=== PATIENT | male | born 1995 | race Caucasian/White ===

== ENCOUNTER 2016-09-23 16:23 | Emergency (ER) | payer SELFPAY ==
[2016-09-23] MEDS: Sodium Chloride 0.9% 1,000 ML IV SCH (17:06)
[2016-09-23] MEDS: Ondansetron 4 MG/2 ML SDV IVPUSH ONE ×2 (17:07→18:57)
[2016-09-23] MEDS: Sodium Chloride 0.9% 10 ML Syringe FLUSH PRN (17:08)
[2016-09-23] MEDS: Famotidine 20 MG/2 ML SDV IVPUSH ONE (17:10)
[2016-09-23] MEDS: HYDROmorphone 0.5 MG/0.5 ML Syringe IVPUSH ONE ×2 (17:13→18:58)
--- NOTE | 2016-09-23 18:54 | EDM.PDOC ---
ED HPI GI/ABDOMINAL - General Chief Complaint: Abdominal Pain Stated Complaint: ABDOMINAL PAIN Time Seen by Provider: 09/23/16 16:35 Source of Information: Reports: Patient, RN notes reviewed - History of Present Illness INITIAL COMMENTS - FREE TEXT/NARRATIVE: 20-year-old male comes in with abdominal pain nausea vomiting and diarrhea. This started yesterday afternoon about 28 hours ago. This started with the nausea vomiting and then progressed to frequent watery diarrhea along with frequent abdominal cramps more upper abdominal and lower abdominal. Of note looking at past medical records he has had frequent visits with similar symptomatology over the past 3-4 years. He has had some chills but no obvious fever. No prior abdominal surgeries. - Related Data Allergies/ADRs: Allergies Allergy/AdvReac Type Severity Reaction Status Date / Time lactose Allergy Abdominal Verified 09/23/16 16:29 Pain Home Meds: Home Meds Ondansetron [Zofran ODT] 4 mg PO Q6H PRN #7 tab.dis 09/23/16 [Rx] Past Medical History - Past Health History Medical/Surgical History: Denies Medical/Surgical History Other Respiratory History: Hx--states was Dx'd with cannibinoid hyperemesis syndrome in past. Other Gastrointestinal History: recurretn abdominal pain Social & Family History - Tobacco Use Smoking Status *Q: Current Every Day Smoker Years of Tobacco use: 2 Packs/Tins Daily: 0.5 Second Hand Smoke Exposure: No - Alcohol Use Days Per Week of Alcohol Use: 0 - Recreational Drug Use Recreational Drug Use: Yes Drug Use in Last 12 Months: Yes Recreational Drug Type: Reports: Marijuana/Hashish ED ROS GENERAL - Review of Systems Review Of Systems: See Below Constitutional: Reports: chills. Denies: fever HEENT: Reports: No symptoms Respiratory: Denies: shortness of breath, pleuritic chest pain Cardiovascular: Denies: Chest pain GI/Abdominal: Reports: Abdominal pain (upper abdominal pain and cramping), Diarrhea (frequent watery), Decreased appetite, Nausea, Vomiting (frequent repetitive since yesterday afternoon) Musculoskeletal: Reports: no symptoms Skin: Reports: no symptoms Neurological: Reports: dizziness (mild) ED EXAM, GI/ABD - Physical Exam Exam: See Below General Appearance: alert, moderate distress Throat/Mouth: Normal inspection, Normal oropharynx Head: atraumatic. No: facial swelling Neck: supple, full range of motion Respiratory/Chest: no respiratory distress, lungs clear, normal breath sounds Cardiovascular: regular rate, rhythm GI/Abdominal: tenderness (moderate tenderness upper midabdomen mild periumbilical tenderness mild diffuse lower abdominal tenderness). No: guarding , rebound Back Exam: No: CVA tenderness (L), CVA tenderness (R) Extremities: normal inspection, normal range of motion Skin Exam: Warm, Dry, Normal color Course - Vital Signs Last Recorded V/S: Last Vital Signs Temp 96.2 F 09/23/16 16:27 Pulse 48 L 09/23/16 18:59 Resp 16 09/23/16 18:59 BP 130/84 09/23/16 18:59 Pulse Ox 100 09/23/16 18:59 - Orders/Labs/Meds Orders: Active Orders 24 hr Category Date Time Status Peripheral IV Care [RC] . DIRECTED Care 09/23/16 16:58 Active Sodium Chloride 0.9% [Normal Saline] 1,000 ml Med 09/23/16 17:00 Active IV ONETIME Sodium Chloride 0.9% [Saline Flush] Med 09/23/16 16:54 Active 10 ml FLUSH ASDIRECTED PRN Peripheral IV Insertion Adult [OM.PC] Stat Oth 09/23/16 16:49 Ordered Medication Orders Sodium Chloride (Normal Saline) 1,000 mls @ 999 mls/hr IV ONETIME [facility] Last Admin: 09/23/16 17:06 Dose: 999 mls/hr Sodium Chloride (Saline Flush) 10 ml FLUSH ASDIRECTED PRN PRN Reason: Keep Vein Open Last Admin: 09/23/16 17:08 Dose: 10 ml Labs: Laboratory Tests 09/23/16 09/23/16 Range/Units 16:35 16:35 WBC 17.29 H (4.23-9.07) K/mm3 RBC 5.30 (4.63-6.08) M/mm3 Hgb 15.9 (13.7-17.5) gm/L Hct 46.4 (40.1-51.0) % MCV 87.5 (79.0-92.2) fl MCH 30.0 (25.7-32.2) pg MCHC 34.3 (32.2-35.5) g/dl RDW Std Deviation 40.6 (35.1-43.9) fL Plt Count 441 H (163-337) K/mm3 MPV 9.0 L (9.4-12.3) fl Neut % (Auto) 91.3 H (34.0-67.9) % Lymph % (Auto) 5.7 L (21.8-53.1) % [place] % (Auto) 2.7 L (5.3-12.2) % Eos % (Auto) 0 L (0.8-7.0) Baso % (Auto) 0.1 (0.1-1.2) % Neut # 15.77 H (1.78-5.38) K/mm3 Lymph # 0.99 L (1.32-3.57) K/mm3 [place] # 0.47 (0.30-0.82) K/mm3 Eos # 0.00 L (0.04-0.54) K/mm3 Baso # 0.02 (0.01-0.08) K/mm3 Manual Slide Review Abnormal smear Sodium 139 (136-145) mEq/L Potassium 3.9 (3.5-5.1) mEq/L Chloride 98 (98-107) mEq/L Carbon Dioxide 27 (21-32) mEq/L Anion Gap 17.9 H (5-15) BUN 15 (7-18) mg/dL Creatinine 1.0 (0.7-1.3) mg/dL Est Cr Clr Drug Dosing 102.91 mL/min Estimated GFR (MDRD) > 60 (>60) mL/min BUN/Creatinine Ratio 15.0 (14-18) Glucose 139 H (74-106) mg/dL Calcium 9.8 (8.5-10.1) mg/dL Total Bilirubin 0.3 (0.2-1.0) mg/dL AST 22 (15-37) U/L ALT 25 (16-63) U/L Alkaline Phosphatase 107 (46-116) U/L Total Protein 8.2 (6.4-8.2) g/dl Albumin 4.8 (3.4-5.0) g/dl Globulin 3.4 gm/dL Albumin/Globulin Ratio 1.4 (1-2) Meds: Medications Generic Name Dose Route Start Last Admin Trade Name Freq PRN Reason Stop Dose Admin Sodium Chloride 1,000 mls @ 999 mls/hr 09/23/16 17:00 09/23/16 17:06 Normal Saline IV 999 mls/hr ONETIME NEL Administration Sodium Chloride 10 ml 09/23/16 16:54 09/23/16 17:08 Saline Flush FLUSH 10 ml ASDIRECTED PRN Administration Keep Vein Open Discontinued Medications Generic Name Dose Route Start Last Admin Trade Name Maria Fernanda PRN Reason Stop Dose Admin Famotidine 20 mg 09/23/16 16:54 09/23/16 17:10 Pepcid IVPUSH 09/23/16 16:55 20 mg ONETIME ONE Administration Hydromorphone HCl 0.5 mg 09/23/16 16:58 09/23/16 17:13 Dilaudid IVPUSH 09/23/16 16:59 0.5 mg ONETIME ONE Administration Hydromorphone HCl 0.5 mg 09/23/16 18:48 09/23/16 18:58 Dilaudid IVPUSH 09/23/16 18:49 0.5 mg ONETIME ONE Administration Ondansetron HCl 4 mg 09/23/16 16:54 09/23/16 17:07 Zofran IVPUSH 09/23/16 16:55 4 mg ONETIME ONE Administration Ondansetron HCl 4 mg 09/23/16 18:48 09/23/16 18:57 Zofran IVPUSH 09/23/16 18:49 4 mg ONETIME ONE Administration - Re-Assessments/Exams Free Text/Narrative Re-Assessment/Exam: 09/23/16 19:05. feeling better after 1 L of IV normal saline, IV Zofran and 1 mg Dilaudid. He is no longer vomiting. He is asking if he can drink fluids. We will let him slowly start on some ice chips. Further medicates with another 4 mg ZofranIV prior to discharge and also 0.5 mg of water. On recheck he continues to be more tender upper mid abdomen than lower abdomen has very minimal tenderness at this time right lower corner. His white blood count is elevated with the sudden onset of nausea vomiting watery diarrhea onset and progression of symptoms much more suggestive for a viral gastroenteritis type that infection versus appendicitis. He shouldn't has been cautioned to return to ED if at any time the pain does start localizing more to the right lower abdomen or if symptoms not getting better over the next 12-24 hours as expected. Discharge instructions as documented. Departure - Departure Time of Disposition: 18:47 Disposition: Home, Self-Care 01 Condition: fair Clinical Impression: Abdominal pain Qualifiers: Abdominal location: upper abdomen, unspecified Qualified Code(s): R10.10 - Upper abdominal pain, unspecified Vomiting Qualifiers: Vomiting type: unspecified Vomiting Intractability: non-intractable Diarrhea Qualifiers: Diarrhea type: unspecified type Qualified Code(s): R19.7 - Diarrhea, unspecified Prescriptions: Ondansetron [Zofran ODT] 4 mg PO Q6H PRN #7 tab.dis PRN Reason: Nausea/Vomiting Instructions: Diarrhea, Adult, Abdominal Pain, Adult, [id number], Nausea and Vomiting, Adult Referrals: PCP,None [Primary Care Provider] - Forms: ED Department Discharge Additional Instructions: clear liquids only until tomorrow afternoon, then careful bland diet as tolerated, start probiotic this evening and take twice daily for one week, Zofran if needed for further nausea or vomiting, return to ED as discussed if pain localizing to right lower abdomen, followup clinic if not back to normal by Tuesday - My Orders Last 24 Hours: My Active Orders 09/23/16 16:49 Peripheral IV Insertion Adult [OM.PC] Stat 09/23/16 16:54 Sodium Chloride 0.9% [Saline Flush] 10 ml FLUSH ASDIRECTED PRN 09/23/16 16:58 Peripheral IV Care [RC] . DIRECTED 09/23/16 17:00 Sodium Chloride 0.9% [Normal Saline] 1,000 ml IV ONETIME - Assessment/Plan Last 24 Hours: My Active Orders 09/23/16 16:49 Peripheral IV Insertion Adult [OM.PC] Stat 09/23/16 16:54 Sodium Chloride 0.9% [Saline Flush] 10 ml FLUSH ASDIRECTED PRN 09/23/16 16:58 Peripheral IV Care [RC] . DIRECTED 09/23/16 17:00 Sodium Chloride 0.9% [Normal Saline] 1,000 ml IV ONETIME
[2016-09-23 19:00] VITALS: BP 130/84
== END 2016-09-23 19:28 | disposition home or self-care (01) ==
LOC: JD.ED 16:23
DX: R10.10 Upper abdominal pain, unspecified (principal); R11.10 Vomiting, unspecified; R19.7 Diarrhea, unspecified; F17.210 Nicotine dependence, cigarettes, uncomplicated
CPT/HCPCS: 36415; 80053; 85025; 96361; 96374; 96375; 96376; 99284; J1170; J2405; J7040; J7050

== ENCOUNTER 2016-11-09 22:55 | Emergency (ER) | payer SELFPAY ==
[2016-11-09 23:04] VITALS: BP 129/68
[2016-11-09] MEDS ORDERED: Ondansetron 4 MG/2 ML SDV IVPUSH ONE (23:29)
[2016-11-09] MEDS ORDERED: Alum Hydrox/Mag Hydrox/Simeth 30 ML, Lidocaine 2% 15 ML PO STA ×2 (23:30)
[2016-11-09] MEDS ORDERED: Sodium Chloride 0.9% 1,000 ML IV SCH (23:30)
--- NOTE | 2016-11-09 23:32 | EDM.PDOC ---
ED HPI GI/ABDOMINAL - General Chief Complaint: Abdominal Pain Stated Complaint: ABDOMINAL PAIN VOMITING Time Seen by Provider: 11/09/16 23:02 Source of Information: Reports: Patient, Old records, RN notes reviewed History Limitations: Reports: No limitations - History of Present Illness INITIAL COMMENTS - FREE TEXT/NARRATIVE: The patient states that he developed epigastric pain, burning in character, along with nausea and vomiting around 18:30. The pain is not modifiable. It does not radiate. The patient states that he believes that his gallbladder has ruptured and is leaking hot fluid all over the place, and that we better figure it out. Review of the medical records indicates the patient has been to this ED many times for similar complaints, however, the patient states that this current episode is different than prior visits. On prior visits, he states, he did not have the sensation of hot liquid in his abdomen. He states that he has cannabinoid hyperemesis syndrome, and is prescribe Zofran , but has not filled the prescription, citing lack of money. Similarly, he states that his recurrent episodes of abdominal pain and emesis have not been evaluated as an outpatient. The patient does not have a PCP. - Related Data Allergies/ADRs: Allergies Allergy/AdvReac Type Severity Reaction Status Date / Time lactose Allergy Abdominal Verified 11/09/16 23:05 Pain Home Meds: Home Meds . [No Known Home Meds] 11/09/16 [History] Past Medical History Gastrointestinal History: Reports: Other (see below) (Cannabinoid hyperemesis syndrome) Social & Family History - Tobacco Use Smoking Status *Q: Current Every Day Smoker Years of Tobacco use: 1 Packs/Tins Daily: 0.5 Second Hand Smoke Exposure: No - Caffeine Use Caffeine Use: Reports: Coffee - Alcohol Use Alcohol Use History: No Days Per Week of Alcohol Use: 0 - Recreational Drug Use Recreational Drug Use: Yes Drug Use in Last 12 Months: Yes Recreational Drug Type: Reports: Marijuana/Hashish Recreational Drug Use Frequency: Socially - Living Situation & Occupation Living situation: Reports: single, other (with friends) Occupation: unemployed ED ROS GENERAL - Review of Systems Review Of Systems: See Below Constitutional: Reports: no symptoms HEENT: Reports: No symptoms Respiratory: Reports: No Symptoms Cardiovascular: Reports: No symptoms Endocrine: Reports: no symptoms GI/Abdominal: Reports: No symptoms : Reports: no symptoms Musculoskeletal: Reports: no symptoms Skin: Reports: no symptoms Neurological: Reports: No Symptoms Hematologic/Lymphatic: Reports: no symptoms Immunologic: Reports: no symptoms ED EXAM, GI/ABD - Physical Exam Exam: See Below Exam Limited By: Uncooperative General Appearance: alert, WD/WN, mild distress Eyes: bilateral: EOMI Ears: normal external exam, hearing grossly normal Nose: normal inspection, no blood Throat/Mouth: Normal inspection, Normal lips, Normal voice, No airway compromise Head: atraumatic, normocephalic Neck: normal inspection, full range of motion Respiratory/Chest: no respiratory distress, lungs clear, normal breath sounds, no accessory muscle use Cardiovascular: normal peripheral pulses, regular rate, rhythm, no edema, no gallop, no JVD, no murmur, no rub GI/Abdominal: normal bowel sounds, soft, no organomegaly, no distention, no abnormal bruit, no mass, tenderness (Primarily to the epigastric and periumbilical regions. Mild right upper quadrant tenderness. Essentially nontender elsewhere.) (Male) Exam: Deferred Rectal (Males) Exam: Deferred Back Exam: normal inspection, full range of motion, CVA tenderness (L) (slight) . No: CVA tenderness (R) Extremities: normal inspection, normal range of motion, no pedal edema, normal capillary refill Neurological: alert, oriented, no motor/sensory deficits Psychiatric: other (hostile) Skin Exam: Warm, Dry, Intact, Normal color, No rash Lymphatic: no adenopathy Course - Vital Signs Last Recorded V/S: Last Vital Signs Temp 36.6 C 11/09/16 23:02 Pulse 59 L 11/09/16 23:02 Resp 16 11/09/16 23:02 BP 129/68 11/09/16 23:02 Pulse Ox 100 11/09/16 23:02 - Orders/Labs/Meds Orders: Active Orders 24 hr Category Date Time Status Abdomen Pelvis w Cont [CT] Stat Exams 11/09/16 23:29 Ordered Labs: Laboratory Tests 11/09/16 11/09/16 Range/Units 23:39 23:39 WBC 12.03 H (4.23-9.07) K/mm3 RBC 4.62 L (4.63-6.08) M/mm3 Hgb 13.8 (13.7-17.5) gm/L Hct 40.1 (40.1-51.0) % MCV 86.8 (79.0-92.2) fl MCH 29.9 (25.7-32.2) pg MCHC 34.4 (32.2-35.5) g/dl RDW Std Deviation 38.9 (35.1-43.9) fL Plt Count 311 (163-337) K/mm3 MPV 8.5 L (9.4-12.3) fl Neutrophils % (Manual) 79 H (40-60) % Band Neutrophils % 1 (0-10) % Lymphocytes % (Manual) 19 L (20-40) % Atypical Lymphs % 0 % Monocytes % (Manual) 1 L (2-10) % Eosinophils % (Manual) 0 L (0.8-7.0) % Basophils % (Manual) 0 L (0.2-1.2) Platelet Estimate Adequate Plt Morphology Comment Normal RBC Morph Comment Normal Sodium 142 (136-145) mEq/L Potassium 4.0 (3.5-5.1) mEq/L Chloride 105 (98-107) mEq/L Carbon Dioxide 28 (21-32) mEq/L Anion Gap 13.0 (5-15) BUN 10 (7-18) mg/dL Creatinine 0.9 (0.7-1.3) mg/dL Est Cr Clr Drug Dosing 110.11 mL/min Estimated GFR (MDRD) > 60 (>60) mL/min BUN/Creatinine Ratio 11.1 L (14-18) Glucose 108 H (74-106) mg/dL Calcium 9.0 (8.5-10.1) mg/dL Total Bilirubin 0.5 (0.2-1.0) mg/dL AST 13 L (15-37) U/L ALT 19 (16-63) U/L Alkaline Phosphatase 82 (46-116) U/L Total Protein 6.9 (6.4-8.2) g/dl Albumin 4.4 (3.4-5.0) g/dl Globulin 2.5 gm/dL Albumin/Globulin Ratio 1.8 (1-2) Lipase 49 L (73-393) U/L Meds: Medications Discontinued Medications Generic Name Dose Route Start Last Admin Trade Name Freq PRN Reason Stop Dose Admin Al Hydroxide/Mg Hydroxide 30 0 ml 11/09/ 23:30 ml/ Lidocaine HCl 15 ml PO 04/18/17 23:31 ONETIME STA Sodium Chloride 1,000 mls @ 150 mls/hr 11/09/16 23:30 11/09/16 23:39 Normal Saline IV 150 mls/hr ASDIRECTED NEL Administration Ondansetron HCl 4 mg 11/09/16 23:29 11/09/16 23:39 Zofran IVPUSH 11/09/16 23:30 4 mg ONETIME ONE Administration - Re-Assessments/Exams Free Text/Narrative Re-Assessment/Exam: 11/10/16 00:12 On abdominal exam, I began to palpate the patient's right lower quadrant. He immediately said that that really hurt, and not to touch him again. I explained that without an examination, I would not be able to help determine the cause of his pain. He allowed me to reexamine him, and when I again palpated his right lower quadrant, he had no tenderness. Overall, it appears he was tender in the epigastric region, with minimal tenderness elsewhere. I ordered an abdominal workup, but I did not order any opioids, initially, preferring to try a GI cocktail to see if that would help, given the location of the patient's pain. If that did not help, my plan was to order IV Dilaudid. This plan was explained to the patient's nurse. I was then notified by the nurse that the patient is refusing both the GI cocktail and the oral contrast. Additionally, he is refusing to provide a urine sample. 11/10/16 00:20 Notified by the nurses that the patient wants to leave. I informed him that we cannot find out what the cause of his pain is if he leaves. He stated that he just wants pain medication. I suspect that the patient's symptoms are due to continued cannabinoid hyperemesis syndrome. I suspect that the reason the patient refused to provide a urine sample was because he did not want me to perform a drug screen. Obviously, the patient is drug-seeking. Departure - Departure Time of Disposition: 00:21 Disposition: Against Medical Advice 07 Condition: good Clinical Impression: Abdominal pain of unknown etiology, Nausea & vomiting, Drug-seeking behavior Referrals: PCP,None [Primary Care Provider] - Forms: ED Department Discharge Additional Instructions: You were seen in the emergency room for upper abdominal pain, nausea, and vomiting. Workup ordered in the ER included blood work, urine studies, and a CAT scan of your abdomen and pelvis. An oral medicine was ordered to help determine if your symptoms could be due to esophagitis, gastritis, or an ulcer, however, you refused to drink this. Your initial blood work appears to be unremarkable, however, because you refused to give us a urine sample and refused to drink the oral contrast for the CAT scan, we are not able to determine the cause of your symptoms. You have decided to leave AGAINST MEDICAL ADVICE. If you reconsider, and would like to have your symptoms evaluated, please do not hesitate to return to the ER. - My Orders Last 24 Hours: My Active Orders 11/09/16 23:29 Abdomen Pelvis w Cont [CT] Stat - Assessment/Plan Last 24 Hours: My Active Orders 11/09/16 23:29 Abdomen Pelvis w Cont [CT] Stat
== END 2016-11-10 00:22 | disposition left against medical advice (07) ==
LOC: JD.ED 22:55
DX: R10.13 Epigastric pain (principal); R10.33 Periumbilical pain; R11.2 Nausea with vomiting, unspecified; Z76.5 Malingerer [conscious simulation]; F17.210 Nicotine dependence, cigarettes, uncomplicated; Z91.09 Other allergy status, other than to drugs and biological substances
CPT/HCPCS: 36415; 80053; 83690; 85025; 96361; 99284; J2405; J7040

== ENCOUNTER 2016-11-10 05:17 | Emergency (ER) | payer SELFPAY ==
[2016-11-10 05:30] VITALS: BP 124/79
[2016-11-10] MEDS ORDERED: Ondansetron 4 MG/2 ML SDV IVPUSH STA (05:41)
[2016-11-10] MEDS ORDERED: Dicyclomine 20 MG/2 ML SDV IM ONE (05:44)
[2016-11-10] MEDS ORDERED: Sodium Chloride 0.9% 1,000 ML IV ONE (05:46)
--- NOTE | 2016-11-10 05:52 | EDM.PDOC ---
ED HPI GI/ABDOMINAL - General Chief Complaint: Gastrointestinal Problem Stated Complaint: abdominal pain Time Seen by Provider: 11/10/16 05:32 Source of Information: Reports: Patient, Other (Friend) History Limitations: Reports: No limitations - History of Present Illness INITIAL COMMENTS - FREE TEXT/NARRATIVE: The patient was seen in this ED by me a few hours ago, complaining of epigastric pain, burning in character, along with nausea and emesis, that began around 18:30 last night. The pain did not radiate, and patient was not able to identify any modifiers. He believed that his pain was due to a ruptured gallbladder with bile leaking within his abdomen. Review of the medical records indicated that the patient had been to this ED many times previously for similar complaints, however, the patient stated that this episode was different than the previous ones. A workup was ordered, including a blood work, a urinalysis, a urine drug screen , and a CT scan of the abdomen and pelvis. I had ordered a GI cocktail to see if that would improve his symptoms, and while I was prepared to order Dilaudid, I wanted to obtain a urine sample first. Unfortunately, the patient refused to drink the GI cocktail, refused to drink the oral contrast, and refused to provide a urine sample. He then left AMA. The patient now returns with his friend. His friend states that since a left, the patient has continued to vomit, and has taken 4 hot showers - is the only thing that gives him relief. When asked earlier tonight how long it has been since he smoked marijuana, he replied "3 weeks". When asked again now, he tells me that it has been about a week. The patient has a history of cannabinoid hyperemesis syndrome, but despite his symptoms, including his relief with hot showers, he does not believe that his current symptoms are related to his continued use of marijuana. The patient was told that in order to properly evaluate him, he will need to drink the oral contrast and provided a urine sample. He asked for pain medication. Once again, I am willing to order pain medication, but I need a urine sample from him first, because I need to see if opioid use is contributing to this problem. Could his symptoms be due to opioid withdraw? I believe this is even more important, given that he left AMA based almost entirely on whether or not he received pain medication. The patient does not have a PCP. - Related Data Allergies/ADRs: Allergies Allergy/AdvReac Type Severity Reaction Status Date / Time lactose Allergy Abdominal Verified 11/10/16 05:27 Pain Home Meds: Home Meds Ondansetron [Zofran ODT] 1 tab PO Q8H PRN #4 tab.dis 11/10/16 [Rx] Past Medical History Gastrointestinal History: Reports: Other (see below) (Cannabinoid hyperemesis syndrome) Social & Family History - Tobacco Use Smoking Status *Q: Current Every Day Smoker Years of Tobacco use: 1 Packs/Tins Daily: 0.5 - Caffeine Use Caffeine Use: Reports: Coffee - Alcohol Use Alcohol Use History: No Days Per Week of Alcohol Use: 0 - Recreational Drug Use Recreational Drug Use: Yes Drug Use in Last 12 Months: Yes Recreational Drug Type: Reports: Marijuana/Hashish Recreational Drug Use Frequency: Socially - Living Situation & Occupation Living situation: Reports: single, other (with friends) Occupation: unemployed ED ROS GENERAL - Review of Systems Review Of Systems: ROS reveals no pertinent complaints other than HPI. ED EXAM, GI/ABD - Physical Exam Exam: See Below Exam Limited By: No limitations General Appearance: alert, WD/WN, mild distress (Appears tired. He occasionally retches.) Eyes: bilateral: normal appearance, EOMI Ears: normal external exam, hearing grossly normal Nose: normal inspection, no blood Throat/Mouth: Normal inspection, Normal lips, Normal voice, No airway compromise Head: atraumatic, normocephalic Neck: normal inspection, full range of motion Respiratory/Chest: no respiratory distress, lungs clear, normal breath sounds, no accessory muscle use Cardiovascular: normal peripheral pulses, regular rate, rhythm, no gallop, no JVD, no murmur, no rub GI/Abdominal: normal bowel sounds, soft, no organomegaly, no distention, no abnormal bruit, no mass, tenderness (Primarily epigastric and along the rectus muscles. Essentially nontender elsewhere.) (Male) Exam: Deferred Rectal (Males) Exam: Deferred Back Exam: normal inspection, full range of motion. No: CVA tenderness (L), CVA tenderness (R) Extremities: normal inspection, normal range of motion, no pedal edema, normal capillary refill Neurological: alert, oriented, normal cognition, no motor/sensory deficits Psychiatric: normal affect Skin Exam: Warm, Dry, Intact, Normal color, No rash Lymphatic: no adenopathy Course - Vital Signs Last Recorded V/S: Last Vital Signs Temp 35.8 C 11/10/16 05:28 Pulse 89 11/10/16 05:28 Resp 20 11/10/16 05:28 BP 124/79 11/10/16 05:28 Pulse Ox 100 11/10/16 05:28 - Orders/Labs/Meds Orders: Active Orders 24 hr Category Date Time Status Sodium Chloride 0.9% [Normal Saline] 1,000 ml Med 11/10/16 07:15 Active IV ASDIRECTED Medication Orders Sodium Chloride (Normal Saline) 1,000 mls @ 150 mls/hr IV ASDIRECTED NEL Last Admin: 11/10/16 07:20 Dose: 150 mls/hr Labs: Laboratory Tests 11/10/16 11/10/16 11/10/16 Range/Units 05:56 05:56 07:10 WBC 14.44 H (4.23-9.07) K/mm3 RBC 4.95 (4.63-6.08) M/mm3 Hgb 14.7 (13.7-17.5) gm/L Hct 42.8 (40.1-51.0) % MCV 86.5 (79.0-92.2) fl MCH 29.7 (25.7-32.2) pg MCHC 34.3 (32.2-35.5) g/dl RDW Std Deviation 39.2 (35.1-43.9) fL Plt Count 371 H (163-337) K/mm3 MPV 9.0 L (9.4-12.3) fl Neutrophils % (Manual) 82 H (40-60) % Band Neutrophils % 2 (0-10) % Lymphocytes % (Manual) 14 L (20-40) % Atypical Lymphs % 0 % Monocytes % (Manual) 2 (2-10) % Eosinophils % (Manual) 0 L (0.8-7.0) % Basophils % (Manual) 0 L (0.2-1.2) Platelet Estimate Adequate RBC Morph Comment Normal Sodium 141 (136-145) mEq/L Potassium 3.8 (3.5-5.1) mEq/L Chloride 102 (98-107) mEq/L Carbon Dioxide 25 (21-32) mEq/L Anion Gap 17.8 H (5-15) BUN 10 (7-18) mg/dL Creatinine 0.9 (0.7-1.3) mg/dL Est Cr Clr Drug Dosing 110.11 mL/min Estimated GFR (MDRD) > 60 (>60) mL/min BUN/Creatinine Ratio 11.1 L (14-18) Glucose 141 H (74-106) mg/dL Calcium 9.7 (8.5-10.1) mg/dL Total Bilirubin 0.7 (0.2-1.0) mg/dL AST 17 (15-37) U/L ALT 23 (16-63) U/L Alkaline Phosphatase 85 (46-116) U/L Total Protein 7.5 (6.4-8.2) g/dl Albumin 4.7 (3.4-5.0) g/dl Globulin 2.8 gm/dL Albumin/Globulin Ratio 1.7 (1-2) Lipase 55 L (73-393) U/L Urine Color Yellow (Yellow) Urine Appearance Clear (Clear) Urine pH 8.5 H (5.0-8.0) Ur Specific [place] 1.020 (1.005-1.030) Urine Protein 1+ H (Negative) Urine Glucose (UA) Negative (Negative) Urine Ketones 3+ H (Negative) Urine Occult Blood Negative (Negative) Urine Nitrite Negative (Negative) Urine Bilirubin 1+ H (Negative) Urine Urobilinogen 0.2 (0.2-1.0) Ur Leukocyte Esterase Negative (Negative) Urine RBC 0-5 (0-5) /hpf Urine WBC 0-5 (0-5) /hpf Ur Epithelial Cells Not seen (0-5) /hpf Urine Bacteria Few (FEW) /hpf Urine Mucus Few (FEW) /hpf Urine Opiates Screen (NEGATIVE) Ur Buprenorphine Scrn (NEGATIVE) Ur Oxycodone Screen (NEGATIVE) Urine Methadone Screen (NEGATIVE) Ur Propoxyphene Screen (NEGATIVE) Ur Barbiturates Screen (NEGATIVE) Ur Tricyclics Screen (NEGATIVE) Ur Phencyclidine Scrn (NEGATIVE) Ur Amphetamine Screen (NEGATIVE) U Methamphetamines Scrn (NEGATIVE) U Benzodiazepines Scrn (NEGATIVE) U Cocaine Metab Screen (NEGATIVE) U Marijuana (THC) Screen (NEGATIVE) 11/10/16 Range/Units 07:10 WBC (4.23-9.07) K/mm3 RBC (4.63-6.08) M/mm3 Hgb (13.7-17.5) gm/L Hct (40.1-51.0) % MCV (79.0-92.2) fl MCH (25.7-32.2) pg MCHC (32.2-35.5) g/dl RDW Std Deviation (35.1-43.9) fL Plt Count (163-337) K/mm3 MPV (9.4-12.3) fl Neutrophils % (Manual) (40-60) % Band Neutrophils % (0-10) % Lymphocytes % (Manual) (20-40) % Atypical Lymphs % % Monocytes % (Manual) (2-10) % Eosinophils % (Manual) (0.8-7.0) % Basophils % (Manual) (0.2-1.2) Platelet Estimate RBC Morph Comment Sodium (136-145) mEq/L Potassium (3.5-5.1) mEq/L Chloride (98-107) mEq/L Carbon Dioxide (21-32) mEq/L Anion Gap (5-15) BUN (7-18) mg/dL Creatinine (0.7-1.3) mg/dL Est Cr Clr Drug Dosing mL/min Estimated GFR (MDRD) (>60) mL/min BUN/Creatinine Ratio (14-18) Glucose (74-106) mg/dL Calcium (8.5-10.1) mg/dL Total Bilirubin (0.2-1.0) mg/dL AST (15-37) U/L ALT (16-63) U/L Alkaline Phosphatase (46-116) U/L Total Protein (6.4-8.2) g/dl Albumin (3.4-5.0) g/dl Globulin gm/dL Albumin/Globulin Ratio (1-2) Lipase (73-393) U/L Urine Color (Yellow) Urine Appearance (Clear) Urine pH (5.0-8.0) Ur Specific [place] (1.005-1.030) Urine Protein (Negative) Urine Glucose (UA) (Negative) Urine Ketones (Negative) Urine Occult Blood (Negative) Urine Nitrite (Negative) Urine Bilirubin (Negative) Urine Urobilinogen (0.2-1.0) Ur Leukocyte Esterase (Negative) Urine RBC (0-5) /hpf Urine WBC (0-5) /hpf Ur Epithelial Cells (0-5) /hpf Urine Bacteria (FEW) /hpf Urine Mucus (FEW) /hpf Urine Opiates Screen Negative (NEGATIVE) Ur Buprenorphine Scrn Negative (NEGATIVE) Ur Oxycodone Screen Negative (NEGATIVE) Urine Methadone Screen Negative (NEGATIVE) Ur Propoxyphene Screen Negative (NEGATIVE) Ur Barbiturates Screen Negative (NEGATIVE) Ur Tricyclics Screen Negative (NEGATIVE) Ur Phencyclidine Scrn Negative (NEGATIVE) Ur Amphetamine Screen Presumptive positive H (NEGATIVE) U Methamphetamines Scrn Negative (NEGATIVE) U Benzodiazepines Scrn Negative (NEGATIVE) U Cocaine Metab Screen Negative (NEGATIVE) U Marijuana (THC) Screen Presumptive positive H (NEGATIVE) Meds: Medications Generic Name Dose Route Start Last Admin Trade Name Freq PRN Reason Stop Dose Admin Sodium Chloride 1,000 mls @ 150 mls/hr 11/10/16 07:15 11/10/16 07:20 Normal Saline IV 150 mls/hr ASDIRECTED NEL Administration Discontinued Medications Generic Name Dose Route Start Last Admin Trade Name Freq PRN Reason Stop Dose Admin Diatrizoate Meglum/Diatrizoate Sod 90 ml 11/10/16 07:33 11/10/16 07:50 Gastrografin 37% PO 11/10/16 07:34 90 ml ONETIME ONE Administration Dicyclomine HCl 20 mg 11/10/16 05:44 11/10/16 06:03 Bentyl IM 11/10/16 05:45 20 mg ONETIME ONE Administration Hydromorphone HCl 1 mg 11/10/16 07:14 11/10/16 07:20 Dilaudid IVPUSH 11/10/16 07:15 1 mg ONETIME ONE Administration Sodium Chloride 1,000 mls @ 999 mls/hr 11/10/16 05:46 11/10/16 06:01 Normal Saline IV 11/10/16 06:46 999 mls/hr ONETIME ONE Administration Iopamidol 100 ml 11/10/16 07:33 11/10/16 07:51 Isovue-300 (61%) IVPUSH 11/10/16 07:34 100 ml ONETIME ONE Administration Ondansetron HCl 8 mg 11/10/16 05:41 11/10/16 06:01 Zofran IVPUSH 11/10/16 05:42 8 mg ONETIME STA Administration Sodium Chloride 10 ml 11/10/16 07:33 11/10/16 07:51 Saline Flush FLUSH 11/10/16 07:34 10 ml ONETIME ONE Administration - Radiology Interpretation Free Text/Narrative:: CT of the abdomen and pelvis is read by Dr. Lucas as: 1. No abnormality is identified on CT study of the abdomen and pelvis. - Re-Assessments/Exams Free Text/Narrative Re-Assessment/Exam: 11/10/16 09:32 Test results discussed with the patient. Today's workup is grossly unremarkable , with the exception of his urine drug screen being positive for amphetamines and marijuana. When asked about the amphetamine, the patient stated that he has not been taking any Adderall - note that he was aware that Adderall is an amphetamine. The patient appears to be suffering from cannabinoid hyperemesis syndrome. As explained to the patient, this is a clinical diagnosis, there is no specific test for it. I recommended to the patient that he needs to make an adult choice about whether or not the benefits of continuing to smoke marijuana is worth the detriment, as smoking marijuana has repeatedly put him in the ER. The patient not at that he understood what I was saying, but I don't believe he is convinced that his symptoms are due to cannabinoid hyperemesis syndrome. I will discharge him home with a prescription for Zofran and a referral to the clinic for followup. Departure - Departure Time of Disposition: 09:46 Disposition: Home, Self-Care 01 Condition: fair Clinical Impression: Cannabinoid hyperemesis syndrome Referrals: PCP,None [Primary Care Provider] - Anne-Marie Galvan PA-C [Physician Curriculum Development Coordinator] - Forms: ED Department Discharge Additional Instructions: You were seen in the emergency room for nausea, vomiting, and abdominal pain. Workup in the ER included blood work, urine studies, and a CT scan of your abdomen and pelvis. Your entire workup was unremarkable, with the exception of your urine containing amphetamines and marijuana. Your symptoms are MOST LIKELY due to cannabinoid hyperemesis syndrome, a condition where smoking marijuana can make you vomiting uncontrollably. The only cure for cannabanoid hyperemesis syndrome is to stop smoking marijuana. Dissolve one tablet of the anti-nausea medicine Zofran on your tongue up to every 8 hours, as needed for nausea/vomiting. Followup with Anne-Marie Cole in the clinic as needed. If any other problems, please do not hesitate to return to the ER. - My Orders Last 24 Hours: My Active Orders 11/10/16 07:15 Sodium Chloride 0.9% [Normal Saline] 1,000 ml IV ASDIRECTED - Assessment/Plan Last 24 Hours: My Active Orders 11/10/16 07:15 Sodium Chloride 0.9% [Normal Saline] 1,000 ml IV ASDIRECTED
[2016-11-10] MEDS ORDERED: HYDROmorphone 1 MG/ML Syringe IVPUSH ONE (07:14)
[2016-11-10] MEDS ORDERED: Sodium Chloride 0.9% 1,000 ML IV SCH (07:15)
[2016-11-10] MEDS ORDERED: Sodium Chloride 0.9% 10 ML Syringe FLUSH ONE (07:33)
[2016-11-10] MEDS ORDERED: Iopamidol 612 MG/ML 100 ML Bottle IVPUSH ONE (07:33)
[2016-11-10] MEDS ORDERED: Diatrizoate Meglumine/Diatrizoate Sodium 37% 120 ML Bottle PO ONE (07:33)
--- NOTE | 2016-11-10 08:30 | CT ---
CT abdomen and pelvis Technique: Multiple axial images were obtained from above the dome of the diaphragm inferiorly through the pubic symphysis. Intravenous contrast was utilized. Small amount of oral contrast is seen within the stomach. Small bowel is otherwise unopacified limiting details of the exam. Comparison: Previous CT abdomen and pelvis exam of November 2013. Findings: Visualized lung bases shows nothing acute. Liver shows no focal parenchymal abnormality. Gallbladder shows no calcified gallstones. Spleen appears within normal limits. Adrenal glands show no nodule. Kidneys show symmetric contrast enhancement without hydronephrosis or mass. Pancreas shows no discrete abnormality. Aorta shows no aneurysmal dilatation. No retroperitoneal adenopathy or mesenteric abnormalities are seen. No pelvic mass or adenopathy is identified. Delayed images shows contrast within the ureters and bladder. Appendix is seen which is felt to be within normal limits. No bowel dilatation is seen. No free fluid or inflammatory change is identified. Bone window settings were reviewed which appear within normal limits for the patient's age. Impression: 1. No abnormality is identified on CT study of the abdomen and pelvis. Diagnostic code #1
== END 2016-11-10 11:23 | disposition home or self-care (01) ==
LOC: JD.ED 05:17
DX: F12.90 Cannabis use, unspecified, uncomplicated (principal); R11.2 Nausea with vomiting, unspecified; Z91.011 Allergy to milk products; F17.200 Nicotine dependence, unspecified, uncomplicated
CPT/HCPCS: 36415; 74177; 80053; 80306; 81001; 83690; 85025; 96361; 96372; 96374; 96375; 99284; J0500; J1170; J2405; J7040; J7050; Q9963; Q9967